=== PATIENT | female | born 1995 | race Caucasian/White ===

== ENCOUNTER 2024-03-17 18:05 | Emergency (ER) | payer OTHER ==
[~2024-03-17] VITALS: Ht 152.4 cm; Wt 60.8 kg
[2024-03-17 18:07] VITALS: BP 122/82; PULSE 84; RESP 18; TEMP 98.7; O2SAT 100
[2024-03-17] MEDS: diphenhydrAMINE 50 MG CAP PO ONE (19:07)
[2024-03-17] MEDS: FAMOTIDINE 20 MG TAB PO ONE (19:07)
[2024-03-17] MEDS: predniSONE 20 MG TAB PO ONE (19:07)
[2024-03-17 19:46] VITALS: O2SAT 98
[2024-03-17] MEDS ORDERED: DIPH25TA53 PO (19:55)
[2024-03-17] MEDS ORDERED: PRED20TA5 PO (19:55)
[2024-03-17 19:58] VITALS: BP 109/72; PULSE 73; RESP 16; TEMP 98.2; O2SAT 100
== END 2024-03-17 19:58 | disposition home or self-care (01) ==
LOC: MED 18:05
DX: R22.0 Localized swelling, mass and lump, head (principal); T39.015A Adverse effect of aspirin, initial encounter; Z79.899 Other long term (current) drug therapy; Y92.89 Other specified places as the place of occurrence of the external cause
CPT/HCPCS: 99284; J7512; Q0163

== ENCOUNTER 2024-07-02 20:39 | Emergency (ER) | payer OTHER ==
[~2024-07-02 20:39] MED LIST: DIPH25TA53 PO; PRED20TA5 PO
== END 2024-07-02 20:55 | disposition left against medical advice (07) ==
LOC: MED 20:39
DX: T78.49XA Other allergy, initial encounter (principal); Z53.21 Procedure and treatment not carried out due to patient leaving prior to being seen by health care provider; X58.XXXA Exposure to other specified factors, initial encounter